=== PATIENT | male | born 1980 | race Caucasian/White ===

== ENCOUNTER 2018-12-30 04:11 | Emergency (ER) | payer BC, OTHER ==
[2018-12-30] MEDS ORDERED: Ketorolac 30 MG/ML SDV IVPUSH ONE (04:16)
[2018-12-30] MEDS ORDERED: Pantoprazole 40 MG Vial IVPUSH ONE (04:16)
[2018-12-30] MEDS ORDERED: Sodium Chloride 0.9% 1,000 ML IV ONE ×2 (04:16→08:48)
[2018-12-30] MEDS ORDERED: Ondansetron 4 MG/2 ML SDV IVPUSH ONE (04:16)
[2018-12-30] MEDS ORDERED: Sodium Chloride 0.9% 10 ML Syringe FLUSH ONE (04:35)
[2018-12-30 05:02] LABS: CARBON DIOXIDE,CO2 22.5 mmol/L (21.0-32.0); POTASSIUM,K 4.7 mmol/L (3.5-5.1)
--- NOTE | 2018-12-30 06:11 | CT ---
INDICATION: Abdominal pain. Prior renal transplant in 2004. TECHNIQUE: A CT volumetric acquisition was performed of the abdomen and pelvis without intravenous contrast. COMPARISON: None. FINDINGS: The CT images demonstrate normal aeration of the lung bases. There is no evidence of pleural or pericardial fluid. Within the abdomen the liver appears normal in size and density. The spleen is of normal size. There is no evidence of mass effect or inflammation within the pancreas. The gallbladder and bile ducts appear normal. The adrenal glands have normal morphology. The [place] kidneys are markedly atrophic. There is no evidence of retroperitoneal lymphadenopathy. The small intestine and colon appear normal. There is subtle fat stranding about the right lower quadrant transplant kidney and the wall of the urinary bladder also appears thickened. Findings could indicate underlying none changes of pyelonephritis and cystitis. There is no evidence of hydronephrosis or calculus within the transplant kidney. The prostate gland appears normal. There is no evidence of a ventral abdominal wall hernia. IMPRESSION: Subtle fat stranding noted about the transplant kidney as well as mural thickening within the urinary bladder. Would recommend correlation with urinalysis to exclude underlying infection. Please note that all CT scans at this facility use dose modulation, iterative reconstruction, and/or weight-based dosing when appropriate to reduce radiation dose to as low as reasonably achievable. Dictated by Gelacio Chong MD @ Dec 30 2018 6:03AM Signed by Dr. Gelacio Chong @ Dec 30 2018 6:09AM
[2018-12-30] MEDS ORDERED: Sodium Chloride 0.9% 1,000 ML IV SCH (06:45)
--- NOTE | 2018-12-30 06:46 | EDM.PDOC ---
<Marques Medeiros - Last Filed: 12/30/18 06:43> ED HPI GENERAL MEDICAL PROBLEM - General Chief Complaint: Abdominal Pain Stated Complaint: FLU LIKE SYMPTOMS Time Seen by Provider: 12/30/18 06:43 Source of Information: Reports: Patient - History of Present Illness INITIAL COMMENTS - FREE TEXT/NARRATIVE: HISTORY AND PHYSICAL: History of present illness: []Patient with history of renal transplant presents with fever vomiting and flank pain 5 out of 10 radiating to the back Review of systems: As per history of present illness and below otherwise all systems reviewed and negative. Past medical history: As per history of present illness and as reviewed below otherwise noncontributory. Surgical history: As per history of present illness and as reviewed below otherwise noncontributory. Social history: No reported history of drug or alcohol abuse. Family history: As per history of present illness and as reviewed below otherwise noncontributory. No apparent distress Physical exam: HEENT: Atraumatic, normocephalic, pupils reactive, negative for conjunctival pallor or scleral icterus, mucous membranes moist, throat clear, neck supple, nontender, trachea midline. Lungs: Clear to auscultation, breath sounds equal bilaterally, chest nontender. Heart: S1S2, regular, negative for clicks, rubs, or JVD. Abdomen: Soft, nondistended, nontender. Negative for masses or hepatosplenomegaly. Negative for costovertebral tenderness. Pelvis: Stable nontender. Genitourinary: Deferred. Rectal: Deferred. Extremities: Atraumatic, negative for cords or calf pain. Neurovascular unremarkable. Neuro: Awake, alert, oriented. Cranial nerves II through XII unremarkable. Cerebellum unremarkable. Motor and sensory unremarkable throughout. Exam nonfocal. Diagnostics: CBC CMP UA lipase lactic acid blood cultures 2 CT abdomen pelvis no contrast [] Therapeutics: [Normal saline Zofran Proton X impresssion: Renal insufficiency history of renal transplant fever Vomiting bladder inflammation as well as inflammation around transplanted kidney on CT Urinalysis pending at time of dictation [] Definitive disposition and diagnosis as appropriate pending reevaluation and review of above. Right Lower Abdomen Pain Score (Numeric/FACES): 7 - Related Data Allergies Allergy/AdvReac Type Severity Reaction Status Date / Time No Known Allergies Allergy Verified 12/30/18 04:23 Home Meds: Home Meds Irbesartan [Avapro] 75 mg PO DAILY 07/05/14 [History] Lansoprazole [Prevacid] 30 mg PO DAILY 07/05/14 [History] Mycophenolate Mofetil [Cellcept] 750 mg PO BID 07/05/14 [History] Tacrolimus [Prograf] 1 mg PO BID 07/05/14 [History] predniSONE 5 mg PO DAILY 07/05/14 [History] atorvaSTATin [Lipitor] 40 mg PO DAILY 12/30/18 [History] Past Medical History HEENT History: Reports: Other (See Below) Other HEENT History: polyps in L nostril Cardiovascular History: Reports: High Cholesterol, Hypertension Respiratory History: Reports: None Gastrointestinal History: Reports: Chronic Diarrhea, GERD Genitourinary History: Reports: Other (See Below) Other Genitourinary History: kidney transplant Musculoskeletal History: Reports: None Neurological History: Reports: None Psychiatric History: Reports: Anxiety, Depression Endocrine/Metabolic History: Reports: None Hematologic History: Reports: Blood Transfusion(s) Immunologic History: Reports: Solid Organ Transplant Oncologic (Cancer) History: Reports: None Dermatologic History: Reports: None - Infectious Disease History Infectious Disease History: Reports: Chicken Pox - Past Surgical History Head Surgeries/Procedures: Reports: None Social & Family History - Tobacco Use Smoking Status *Q: Current Every Day Smoker Years of Tobacco use: 20 Packs/Tins Daily: 0.3 - Recreational Drug Use Recreational Drug Use: No Course - Vital Signs Last Recorded V/S: Last Vital Signs Temp 38.6 C H 12/30/18 06:25 Pulse 114 H 12/30/18 06:25 Resp 28 H 12/30/18 06:25 BP 116/69 12/30/18 06:25 Pulse Ox 100 12/30/18 06:25 - Orders/Labs/Meds Orders: Active Orders 24 hr Category Date Time Status CULTURE BLOOD [BC] Stat Lab 12/30/18 05:16 Results CULTURE BLOOD [BC] Stat Lab 12/30/18 05:23 Received CULTURE URINE [RM] Stat Lab 12/30/18 07:33 Received Gentamicin 100 mg Med 12/30/18 08:03 Active Sodium Chloride 0.9% [Normal Saline] 50 ml IV ONETIME Piperacillin/Tazobactam [Piperacil-Tazobact] 4.5 gm Med 12/30/18 07:54 Active Sodium Chloride 0.9% [Normal Saline] 100 ml IV ONETIME Sodium Chloride 0.9% [Normal Saline] 1,000 ml Med 12/30/18 06:45 Active IV STAT Blood Culture x2 Reflex Set [OM.PC] Stat Oth 12/30/18 05:04 Ordered Medication Orders Sodium Chloride (Normal Saline) 1,000 mls @ 150 mls/hr IV STAT JANIYA Last Admin: 12/30/18 06:45 Dose: 150 mls/hr Piperacillin Sod/Tazobactam (Sod 4.5 gm/ Sodium Chloride) 100 mls @ 100 mls/hr IV ONETIME ONE Stop: 12/30/18 08:53 Gentamicin Sulfate 100 mg/ (Sodium Chloride) 52.5 mls @ 100 mls/hr IV ONETIME ONE Stop: 12/30/18 08:34 Labs: Laboratory Tests 12/30/18 12/30/18 12/30/18 Range/Units 04:25 04:25 05:23 WBC 36.11 H (4.0-11.0) K/uL RBC 4.67 (4.50-5.90) M/uL Hgb 13.7 (13.0-17.0) g/dL Hct 41.6 (38.0-50.0) % MCV 89.1 (80.0-98.0) fL MCH 29.3 (27.0-32.0) pg MCHC 32.9 (31.0-37.0) g/dL RDW Std Deviation 45.7 (28.0-62.0) fl RDW Coeff of Ashleigh 14 (11.0-15.0) % Plt Count 218 (150-400) K/uL MPV 9.90 (7.40-12.00) fL Neut % (Auto) 91.6 H (48.0-80.0) % Lymph % (Auto) 4.3 L (16.0-40.0) % [place] % (Auto) 3.9 (0.0-15.0) % Eos % (Auto) 0.1 (0.0-7.0) % Baso % (Auto) 0.1 (0.0-1.5) % Neut # (Auto) 33.1 H (1.4-5.7) K/uL Lymph # (Auto) 1.6 (0.6-2.4) K/uL [place] # (Auto) 1.4 H (0.0-0.8) K/uL Eos # (Auto) 0.0 (0.0-0.7) K/uL Baso # (Auto) 0.0 (0.0-0.1) K/uL Nucleated RBC % 0.0 /100WBC Nucleated RBCs # 0 K/uL Lactate 2.2 H (0.20-2.00) mmol/L Sodium 137 (136-148) mmol/L Potassium 4.7 (3.5-5.1) mmol/L Chloride 99 (98-107) mmol/L Carbon Dioxide 22.5 (21.0-32.0) mmol/L BUN 45 H (7.0-18.0) mg/dL Creatinine 3.7 H (0.8-1.3) mg/dL Est Cr Clr Drug Dosing 24.67 mL/min Estimated GFR (MDRD) 18.6 ml/min Glucose 102 (74-106) mg/dL Calcium 9.5 (8.5-10.1) mg/dL Total Bilirubin 0.4 (0.2-1.0) mg/dL AST 25 (15-37) IU/L ALT 32 (14-63) IU/L Alkaline Phosphatase 68 (46-116) U/L Total Protein 7.5 (6.4-8.2) g/dL Albumin 3.8 (3.4-5.0) g/dL Globulin 3.7 (2.6-4.0) g/dL Albumin/Globulin Ratio 1.0 (0.9-1.6) Lipase 132 (73-393) U/L Urine Color Urine Appearance Urine pH (5.0-8.0) Ur Specific [place] (1.001-1.035) Urine Protein (NEGATIVE) mg/dL Urine Glucose (UA) (NEGATIVE) mg/dL Urine Ketones (NEGATIVE) mg/dL Urine Occult Blood (NEGATIVE) Urine Nitrite (NEGATIVE) Urine Bilirubin (NEGATIVE) Urine Urobilinogen (<2.0) EU/dL Ur Leukocyte Esterase (NEGATIVE) Urine RBC (0-2/HPF) Urine WBC (0-5/HPF) Ur Epithelial Cells (NONE-FEW) Urine Bacteria (NEGATIVE) 12/30/18 Range/Units 07:33 WBC (4.0-11.0) K/uL RBC (4.50-5.90) M/uL Hgb (13.0-17.0) g/dL Hct (38.0-50.0) % MCV (80.0-98.0) fL MCH (27.0-32.0) pg MCHC (31.0-37.0) g/dL RDW Std Deviation (28.0-62.0) fl RDW Coeff of [place]leigh (11.0-15.0) % Plt Count (150-400) K/uL MPV (7.40-12.00) fL Neut % (Auto) (48.0-80.0) % Lymph % (Auto) (16.0-40.0) % [place] % (Auto) (0.0-15.0) % Eos % (Auto) (0.0-7.0) % Baso % (Auto) (0.0-1.5) % Neut # (Auto) (1.4-5.7) K/uL Lymph # (Auto) (0.6-2.4) K/uL [place] # (Auto) (0.0-0.8) K/uL Eos # (Auto) (0.0-0.7) K/uL Baso # (Auto) (0.0-0.1) K/uL Nucleated RBC % /100WBC Nucleated RBCs # K/uL Lactate (0.20-2.00) mmol/L Sodium (136-148) mmol/L Potassium (3.5-5.1) mmol/L Chloride (98-107) mmol/L Carbon Dioxide (21.0-32.0) mmol/L BUN (7.0-18.0) mg/dL Creatinine (0.8-1.3) mg/dL Est Cr Clr Drug Dosing mL/min Estimated GFR (MDRD) ml/min Glucose (74-106) mg/dL Calcium (8.5-10.1) mg/dL Total Bilirubin (0.2-1.0) mg/dL AST (15-37) IU/L ALT (14-63) IU/L Alkaline Phosphatase (46-116) U/L Total Protein (6.4-8.2) g/dL Albumin (3.4-5.0) g/dL Globulin (2.6-4.0) g/dL Albumin/Globulin Ratio (0.9-1.6) Lipase (73-393) U/L Urine Color YELLOW Urine Appearance SLT CLOUDY Urine pH 5.5 (5.0-8.0) Ur Specific [place] >= 1.030 (1.001-1.035) Urine Protein >=300 H (NEGATIVE) mg/dL Urine Glucose (UA) NEGATIVE (NEGATIVE) mg/dL Urine Ketones NEGATIVE (NEGATIVE) mg/dL Urine Occult Blood LARGE H (NEGATIVE) Urine Nitrite NEGATIVE (NEGATIVE) Urine Bilirubin SMALL H (NEGATIVE) Urine Urobilinogen 0.2 (<2.0) EU/dL Ur Leukocyte Esterase SMALL H (NEGATIVE) Urine RBC 2-3 (0-2/HPF) Urine WBC 20-25 (0-5/HPF) Ur Epithelial Cells OCCASIONAL (NONE-FEW) Urine Bacteria 2+ H (NEGATIVE) Meds: Medications Generic Name Dose Route Start Last Admin Trade Name Freq PRN Reason Stop Dose Admin Sodium Chloride 1,000 mls @ 150 mls/hr 12/30/18 06:45 12/30/18 06:45 Normal Saline IV 150 mls/hr STAT JANIYA Administration Piperacillin Sod/Tazobactam 100 mls @ 100 mls/hr 12/30/18 07:54 Sod 4.5 gm/ Sodium Chloride IV 12/30/18 08:53 ONETIME ONE Gentamicin Sulfate 100 mg/ 52.5 mls @ 100 mls/hr 12/30/18 08:03 Sodium Chloride IV 12/30/18 08:34 ONETIME ONE Discontinued Medications Generic Name Dose Route Start Last Admin Trade Name Freq PRN Reason Stop Dose Admin Sodium Chloride 1,000 mls @ 999 mls/hr 12/30/18 04:16 12/30/18 04:39 Normal Saline IV 12/30/18 05:16 999 mls/hr STAT ONE Administration Ketorolac Tromethamine 30 mg 12/30/18 04:16 12/30/18 04:40 Toradol IVPUSH 12/30/18 04:17 Not Given ONETIME ONE Ondansetron HCl 8 mg 12/30/18 04:16 12/30/18 04:39 Zofran IVPUSH 12/30/18 04:17 8 mg ONETIME ONE Administration Pantoprazole Sodium 80 mg 12/30/18 04:16 12/30/18 04:39 Protonix Iv IVPUSH 12/30/18 04:17 80 mg .BOLUS ONE Administration Sodium Chloride 20 ml 12/30/18 04:35 12/30/18 04:39 Saline Flush FLUSH 12/30/18 04:36 20 ml ONETIME ONE Administration Departure - Departure Disposition: DC/Tfer to [facility] 02 Clinical Impression: Abdominal pain, Sepsis, History of renal transplant - Discharge Information Referrals: PCP,None [Primary Care Provider] - Forms: ED Department Discharge - My Orders Last 24 Hours: My Active Orders 12/30/18 07:54 Piperacillin/Tazobactam [Piperacil-Tazobact] 4.5 gm Sodium Chloride 0.9% [ Normal Saline] 100 ml IV ONETIME 12/30/18 08:03 Gentamicin 100 mg Sodium Chloride 0.9% [Normal Saline] 50 ml IV ONETIME - Assessment/Plan Last 24 Hours: My Active Orders 12/30/18 07:54 Piperacillin/Tazobactam [Piperacil-Tazobact] 4.5 gm Sodium Chloride 0.9% [ Normal Saline] 100 ml IV ONETIME 12/30/18 08:03 Gentamicin 100 mg Sodium Chloride 0.9% [Normal Saline] 50 ml IV ONETIME <Gelacio Macdonald - Last Filed: 12/30/18 08:16> ED ROS GENERAL - Review of Systems Review Of Systems: ROS reveals no pertinent complaints other than HPI. ED EXAM, GENERAL - Physical Exam Exam: See Below Course - Vital Signs Text/Narrative:: Patient emergent department course been unremarkable UA did demonstrate 2+ bacteria 20-25 white blood cells Zosyn 4.5 g was ordered as well as gentamicin 100 mg IV patient's lactate was elevated at 2.2 white count was 36,000 creatinine is 3.7 up from his baseline of 1.7 saline 2 L bolus had been initiated I discussed case with tertiary care hospital and emergency physician Dr. Calderon graciously accepted the patient and will consult nephrology I did reach L2 nephrology professor of astronomy from the patient's treatment center in [place] where he is followed they agreed with above plan and recommended Lim catheter to facilitate treatment monitor urine output and ensure kidney drainage. Departure - Departure Time of Disposition: 08:15 Condition: Serious
--- NOTE | 2018-12-30 07:29 | CR ---
INDICATION: Pain COMPARISON: none TECHNIQUE: Two view chest. FINDINGS: The lungs are clear. The heart, mediastinum and pulmonary vessels are of normal size. There is no evidence of pleural fluid. IMPRESSION: Negative chest. Dictated by Gelacio Chong MD @ Dec 30 2018 7:28AM Signed by Dr. Gelacio Chong @ Dec 30 2018 7:28AM
[2018-12-30] MEDS ORDERED: Piperacillin/Tazobactam 4.5 GM in Sodium Chloride 0.9% 100 ML IV ONE (07:54)
[2018-12-30 08:23] VITALS: BP 104/63
== END 2018-12-30 09:45 ==
LOC: MW.ED 04:11
DX: A41.9 Sepsis, unspecified organism (principal); T86.19 Other complication of kidney transplant; N30.90 Cystitis, unspecified without hematuria; N28.9 Disorder of kidney and ureter, unspecified; I10 Essential (primary) hypertension; K21.9 Gastro-esophageal reflux disease without esophagitis; F17.210 Nicotine dependence, cigarettes, uncomplicated; Z79.899 Other long term (current) drug therapy
CPT/HCPCS: 36415; 71045; 74176; 80053; 81001; 83605; 83690; 85025; 87040; 87077; 87086; 87088; 87186; 96361; 96365; 96375; 99284; C9113; J1580; J2405; J2543; J7030; J7040; J7050

== ENCOUNTER 2022-01-04 18:37 | Emergency (ER) | payer BC ==
[2022-01-04] MEDS ORDERED: Sodium Chloride 0.9% 1,000 ML IV ONE ×2 (21:04→23:05)
[2022-01-04 21:59] LABS: CARBON DIOXIDE,CO2 20.3 mmol/L (21.0-32.0); POTASSIUM,K 3.7 mmol/L (3.5-5.1)
[2022-01-05] MEDS ORDERED: Acetaminophen 500 MG Tab PO ONE (00:06)
[2022-01-05 00:19] VITALS: BP 93/55; PULSE 88
== END 2022-01-05 00:22 | disposition home or self-care (01) ==
LOC: MW.ED 18:37
DX: R11.2 Nausea with vomiting, unspecified (principal); R19.7 Diarrhea, unspecified; E78.00 Pure hypercholesterolemia, unspecified; I10 Essential (primary) hypertension; Z79.899 Other long term (current) drug therapy; Z20.822 Contact with and (suspected) exposure to COVID-19
CPT/HCPCS: 36415; 80053; 81003; 85025; 87635; 96360; 96361; 99284; A9270; J7030; U0002